=== PATIENT | male | born 1995 | race African-American/Black ===

== ENCOUNTER 2022-09-22 20:30 | Emergency (ER) | payer OTHER ==
[~2022-09-22] VITALS: Ht 185.4 cm; Wt 88.5 kg
[2022-09-22 20:30] VITALS: BP_SYST 163
--- NOTE | 2022-09-22 20:30 | NUR ---
Patient triaged and placed in waiting room. VSS and patient appears in no acute distress at this time. Accompanied by SELF, awaiting available bed, and MD notified of need for MSE.
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
--- NOTE | 2022-09-22 21:01 | NUR ---
DR LOPEZ OUT TO TRIAGE ROOM FOR EVALUATION
[2022-09-22] MEDS ORDERED: BACITRACIN 1 GM OINT TP ONE ×2 (21:15→21:45)
[2022-09-22] MEDS ORDERED: BACI15OI13 TP (22:05)
[2022-09-22] MEDS ORDERED: SULF1TAB48 PO (22:05)
[2022-09-22 22:23] VITALS: BP_SYST 104
--- NOTE | 2022-09-22 22:23 | NUR ---
Patient given written and verbal discharge instructions and verbalizes understanding. ER DR. LOPEZ discussed with patient the results and treatment provided. Patient in stable condition. ID arm band removed. Rx of BACITRACIN AND BACTRIM given. Patient educated on pain management and to follow up with PMD. Pain Scale 0. Opportunity for questions provided and answered. Medication side effect fact sheet provided.
== END 2022-09-22 22:23 | disposition home or self-care (01) ==
LOC: SED 20:30
DX: S50.312A Abrasion of left elbow, initial encounter (principal); S50.311A Abrasion of right elbow, initial encounter; S80.212A Abrasion, left knee, initial encounter; L03.116 Cellulitis of left lower limb; Z79.899 Other long term (current) drug therapy; V87.8XXA Person injured in other specified noncollision transport accidents involving motor vehicle (traffic), initial encounter; Y93.89 Activity, other specified; Y92.89 Other specified places as the place of occurrence of the external cause; Y99.8 Other external cause status
CPT/HCPCS: 99283